=== PATIENT | female | born 1985 | race Caucasian/White ===

== ENCOUNTER 2018-09-07 17:43 | Emergency (ER) | payer OTHER ==
[~2018-09-07] VITALS: Ht 170.2 cm; Wt 68.0 kg
[2018-09-07 18:28] VITALS: BP_SYST 136
--- NOTE | 2018-09-07 18:29 | NUR ---
Patient to ER bed 8 to gown for evaluation. Side rails up.
[2018-09-07] MEDS ORDERED: KETOROLAC TROMETHAMINE 60 MG/2 ML VIAL IM ONE (18:30)
--- NOTE | 2018-09-07 18:30 | NUR ---
Pt medicated tolerated well.
--- NOTE | 2018-09-07 18:30 | NUR ---
BILLY Henderson at bedside examining patient.
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
--- NOTE | 2018-09-07 19:15 | NUR ---
Patient transported to radiology via WC, accompanied by rad staff.
[2018-09-07 20:08] VITALS: BP_SYST 128
--- NOTE | 2018-09-07 20:08 | NUR ---
Patient given written and verbal discharge instructions and verbalizes understanding. ER MD discussed with patient the results and treatment provided. Patient in stable condition. ID arm band removed. IV catheter removed intact and dressing applied, no active bleeding. Rx of Motrin and Flexeril given. Patient educated on pain management and to follow up with PMD. Pain Scale 2/10 tolerable to patient. Opportunity for questions provided and answered. Medication side effect fact sheet provided.
== END 2018-09-07 20:08 | disposition home or self-care (01) ==
LOC: SED 17:43
DX: S16.1XXA Strain of muscle, fascia and tendon at neck level, initial encounter (principal); R03.0 Elevated blood-pressure reading, without diagnosis of hypertension; V43.52XA Car driver injured in collision with other type car in traffic accident, initial encounter; Y93.89 Activity, other specified; Y92.411 Interstate highway as the place of occurrence of the external cause; Y99.8 Other external cause status
CPT/HCPCS: 36415; 72040; 72072; 81025; 84702; 96372; 99285; J1885